=== PATIENT | male | born 1970 ===

== ENCOUNTER 2020-01-17 17:47 | Inpatient (IN) ==
[2020-01-17] MEDS ORDERED: Aspirin 81 MG TAB.CHEW PO ONE (18:18)
[2020-01-17 18:37] LABS: INR 1.2; Prothrombin Time 13.8 Seconds (9.4-12.1)
[2020-01-17 18:40] LABS: Activated Partial Thrombo Time 31.9 Seconds (26.0-36.0)
[2020-01-17 18:46] LABS: Basophils # 0.1 K/mcL (0.0-0.2); Basophils % 0.6 %; Eosinophils # 0.3 K/mcL (0.0-0.6); Eosinophils % 2.6 %; Hematocrit 35.9 % (37.5-50.1); Hemoglobin 11.4 g/dL (12.9-16.9); Immature Granulocytes % 0.6 % (0-4); Lymphocytes # 2.5 K/mcL (0.6-4.6); Lymphocytes % 21.1 %; Mean Corpuscular HGB Conc 31.8 g/dL (31.6-35.5); Mean Corpuscular Hemoglobin 29.7 pg (28.0-33.3); Mean Corpuscular Volume 93.5 fL (83.0-100.0); Mean Platelet Volume 11.5 fL (9.4-12.4); Monocytes % 8.6 %; Neutrophils # 7.7 K/mcL (1.6-8.9); Platelet Count 295 K/mcL (140-400); Red Blood Count 3.84 M/mcL (4.19-5.50); Red Cell Distribution Width 14.2 % (11.5-14.5); Segmented Neutrophils % 66.5 %; White Blood Count 11.6 K/mcL (4.3-11.1)
[2020-01-17 19:06] LABS: Albumin 3.5 g/dL (3.5-5.7); Albumin/Globulin Ratio 1.1 (1.1-2.2); Bilirubin,Direct 0.2 mg/dL (0.0-0.2); Bilirubin,Indirect 0.4 mg/dL (0.0-1.0); Bilirubin,Total 0.6 mg/dL (0.3-1.0); Calcium 8.5 mg/dL (8.6-10.3); Globulin 3.2 g/dL (2.4-3.5); Potassium 3.3 mEq/L (3.5-5.1); Total Protein 6.7 g/dL (6.4-8.9); Troponin I 0.27 ng/mL (< 0.04)
[2020-01-17] MEDS ORDERED: Azithromycin 500 MG in 0.9 % Sodium Chloride 250 ML IVPB ONE (19:12)
[2020-01-17] MEDS ORDERED: Isovue-370 500 ML BOTTLE IVP ONE (19:12)
[2020-01-17] MEDS ORDERED: cefTRIAXone 1,000 MG in Water for inj. (sterile) 10 ML IVP ONE (19:12)
[2020-01-17] MEDS ORDERED: *HR* Heparin 5,000 UNIT/ML VIAL IVP ONE (19:13)
[2020-01-17] MEDS ORDERED: *HR* Heparin 5,000 UNIT/ML VIAL IVP PRN (19:13)
[2020-01-17] MEDS ORDERED: Albuterol 2.5 MG/3 ML NEBULIZER IH ONE (19:14)
[2020-01-17] MEDS ORDERED: Ipratropium/Albuterol Neb 3 ML IH ONE (19:14)
[2020-01-17] MEDS ORDERED: methylPREDNISolone 125 MG/2 ML VIAL IVP ONE (19:14)
[2020-01-17] MEDS ORDERED: Furosemide 40 MG/4 ML VIAL IVP ONE (19:34)
[2020-01-17] MEDS: Nitroglycerin 0.4 MG TAB.SUBL SL PRN (19:35)
[2020-01-17] MEDS ORDERED: Naloxone 0.4 MG/ML INJ IVP PRN (19:42)
[2020-01-17] MEDS ORDERED: Potassium Chloride Elixir 20 MEQ/15 ML UDC PO ONE (19:44)
[2020-01-17] MEDS ORDERED: D5% in Water 1,000 ML IVC PRN (20:52)
[2020-01-17] MEDS ORDERED: Dextrose Gel 15 GM/37.5 ML TUBE PO PRN ×2 (20:52)
[2020-01-17] MEDS ORDERED: *HR* Dextrose 50 % in Water (Syg) 50 ML SYRINGE IVP PRN (20:52)
[2020-01-17] MEDS: Heparin 25,000 UNIT/250 ML D5W 25,000 UNIT/250 ML IV.SOLN IVC SCH (21:22)
[2020-01-18 01:13] LABS: Basophils % 0.3 %; Eosinophils % 0.2 %; Hematocrit 35.8 % (37.5-50.1); Hemoglobin 11.6 g/dL (12.9-16.9); Immature Granulocytes % 0.6 % (0-4); Lymphocytes # 0.8 K/mcL (0.6-4.6); Mean Corpuscular HGB Conc 32.4 g/dL (31.6-35.5); Mean Corpuscular Hemoglobin 30.7 pg (28.0-33.3); Mean Corpuscular Volume 94.7 fL (83.0-100.0); Mean Platelet Volume 11.7 fL (9.4-12.4); Monocytes # 0.2 K/mcL (0.0-1.3); Monocytes % 1.6 %; Neutrophils # 10.5 K/mcL (1.6-8.9); Platelet Count 292 K/mcL (140-400); Red Blood Count 3.78 M/mcL (4.19-5.50); Red Cell Distribution Width 14.2 % (11.5-14.5); Segmented Neutrophils % 90.3 %; White Blood Count 11.6 K/mcL (4.3-11.1)
[2020-01-18 01:32] LABS: Calcium 8.5 mg/dL (8.6-10.3)
[2020-01-18] MEDS: *HR* Heparin 5,000 UNIT/ML VIAL IVP PRN ×3 (03:52→18:46)
[2020-01-18] MEDS: Nitroglycerin 0.4 MG TAB.SUBL SL PRN ×3 (04:58→05:09)
[2020-01-18] MEDS ORDERED: Insulin LISPRO 300 UNITS/3 ML VIAL SQ ONE (05:30)
[2020-01-18] MEDS: carvediloL 6.25 MG TABLET PO SCH ×2 (08:54→16:41)
[2020-01-18] MEDS: Aspirin Enteric Coated 81 MG Tablet PO SCH (08:54)
[2020-01-18] MEDS: Gabapentin 400 MG CAPSULE PO SCH ×3 (08:54→20:17)
[2020-01-18] MEDS: Loratadine 10 MG TABLET PO SCH (08:54)
[2020-01-18] MEDS: Azithromycin 500 MG in 0.9 % Sodium Chloride 250 ML IVPB SCH (08:55)
[2020-01-18] MEDS: cefTRIAXone 2,000 MG in Water for inj. (sterile) 20 ML IVP SCH (08:56)
[2020-01-18] MEDS ORDERED: Furosemide 40 MG/4 ML VIAL IVP SCH (09:00)
[2020-01-18] MEDS: Insulin LISPRO 300 UNITS/3 ML VIAL SQ SCH ×3 (09:02→16:45)
[2020-01-18] MEDS: Insulin DETEMIR 100 UNIT/ML X5UNITS SQ SCH ×2 (09:28→20:17)
[2020-01-18] MEDS: Budesonide/Formoterol 160/4.5 1 PUFF INH IH SCH ×2 (10:04→19:45)
[2020-01-18] MEDS ORDERED: Perflutren Lipid Microsphere 1.3 ML in 0.9 % Sodium Chloride 8.7 ML IVP ONE (10:57)
[2020-01-18] MEDS: Nicotine 21 MG PATCH.TD24 TD SCH (13:49)
[2020-01-18] MEDS: Furosemide 40 MG/4 ML VIAL IVP SCH ×2 (13:50→20:17)
[2020-01-18] MEDS ORDERED: hydrALAZINE 25 MG TABLET PO SCH (16:34)
[2020-01-18] MEDS: Heparin 25,000 UNIT/250 ML D5W 25,000 UNIT/250 ML IV.SOLN IVC SCH (16:40)
[2020-01-18] MEDS ORDERED: NON-FORMULARY MEDICATION 1 EACH EACH (Insulin Degludec [Tresiba Flextouch U-200] 90 UNIT) SQ SCH (21:00)
[2020-01-19 01:18] LABS: Basophils % 0.2 %; Eosinophils % 0.1 %; Hematocrit 37.1 % (37.5-50.1); Hemoglobin 11.6 g/dL (12.9-16.9); Immature Granulocytes % 0.7 % (0-4); Lymphocytes % 11.3 %; Mean Corpuscular HGB Conc 31.3 g/dL (31.6-35.5); Mean Corpuscular Hemoglobin 29.3 pg (28.0-33.3); Mean Corpuscular Volume 93.7 fL (83.0-100.0); Mean Platelet Volume 11.8 fL (9.4-12.4); Monocytes # 1.3 K/mcL (0.0-1.3); Neutrophils # 15.3 K/mcL (1.6-8.9); Platelet Count 316 K/mcL (140-400); Red Blood Count 3.96 M/mcL (4.19-5.50); Red Cell Distribution Width 14.4 % (11.5-14.5); Segmented Neutrophils % 80.7 %
[2020-01-19 01:20] LABS: Lymphocytes # 2.2 K/mcL (0.6-4.6)
[2020-01-19 01:43] LABS: Calcium 9.3 mg/dL (8.6-10.3)
[2020-01-19] MEDS ORDERED: Albuterol 2.5 MG/3 ML NEBULIZER IH PRN (08:07)
[2020-01-19] MEDS: Insulin LISPRO 300 UNITS/3 ML VIAL SQ SCH ×3 (08:22→17:13)
[2020-01-19] MEDS: carvediloL 6.25 MG TABLET PO SCH ×2 (08:45→17:13)
[2020-01-19] MEDS: Furosemide 40 MG/4 ML VIAL IVP SCH (08:45)
[2020-01-19] MEDS: Azithromycin 500 MG in 0.9 % Sodium Chloride 250 ML IVPB SCH (08:46)
[2020-01-19] MEDS: Loratadine 10 MG TABLET PO SCH (08:49)
[2020-01-19] MEDS: hydrALAZINE 25 MG TABLET PO SCH ×2 (08:49→17:13)
[2020-01-19] MEDS: Gabapentin 400 MG CAPSULE PO SCH ×3 (08:49→22:01)
[2020-01-19] MEDS: Aspirin Enteric Coated 81 MG Tablet PO SCH (08:49)
[2020-01-19] MEDS: Nicotine 21 MG PATCH.TD24 TD SCH (08:49)
[2020-01-19] MEDS: cefTRIAXone 2,000 MG in Water for inj. (sterile) 20 ML IVP SCH (09:20)
[2020-01-19] MEDS: Insulin DETEMIR 100 UNIT/ML X5UNITS SQ SCH ×2 (09:24→22:02)
[2020-01-19] MEDS: Budesonide/Formoterol 160/4.5 1 PUFF INH IH SCH ×2 (10:32→19:58)
[2020-01-19] MEDS: *HR* Heparin 5,000 UNIT/ML VIAL SQ SCH (17:13)
[2020-01-19] MEDS ORDERED: Furosemide 80 MG in 0.9 % Sodium Chloride 50 ML IV SCH (21:15)
[2020-01-20] MEDS: hydrALAZINE 25 MG TABLET PO SCH ×3 (01:30→16:45)
[2020-01-20 05:13] LABS: Basophils # 0.1 K/mcL (0.0-0.2); Basophils % 0.6 %; Eosinophils # 0.2 K/mcL (0.0-0.6); Eosinophils % 1.9 %; Hematocrit 38.5 % (37.5-50.1); Hemoglobin 11.8 g/dL (12.9-16.9); Immature Granulocytes % 0.6 % (0-4); Lymphocytes % 24.1 %; Mean Corpuscular HGB Conc 30.6 g/dL (31.6-35.5); Mean Corpuscular Hemoglobin 29.2 pg (28.0-33.3); Mean Corpuscular Volume 95.3 fL (83.0-100.0); Mean Platelet Volume 11.7 fL (9.4-12.4); Monocytes # 1.1 K/mcL (0.0-1.3); Monocytes % 9.1 %; Neutrophils # 7.9 K/mcL (1.6-8.9); Platelet Count 322 K/mcL (140-400); Red Blood Count 4.04 M/mcL (4.19-5.50); Red Cell Distribution Width 14.7 % (11.5-14.5); Segmented Neutrophils % 63.7 %; White Blood Count 12.3 K/mcL (4.3-11.1)
[2020-01-20 05:33] LABS: Calcium 9.1 mg/dL (8.6-10.3); Potassium 3.6 mEq/L (3.5-5.1)
[2020-01-20] MEDS: *HR* Heparin 5,000 UNIT/ML VIAL SQ SCH ×2 (05:47→16:46)
[2020-01-20] MEDS ORDERED: Furosemide 40 MG/4 ML VIAL IVP SCH (07:30)
[2020-01-20] MEDS: Insulin LISPRO 300 UNITS/3 ML VIAL SQ SCH ×3 (07:41→16:47)
[2020-01-20] MEDS: Loratadine 10 MG TABLET PO SCH (08:02)
[2020-01-20] MEDS: carvediloL 6.25 MG TABLET PO SCH ×2 (08:02→16:45)
[2020-01-20] MEDS: Aspirin Enteric Coated 81 MG Tablet PO SCH (08:02)
[2020-01-20] MEDS: Gabapentin 400 MG CAPSULE PO SCH ×3 (08:03→19:52)
[2020-01-20] MEDS: Cefdinir 300 MG CAPSULE PO SCH ×2 (08:04→19:52)
[2020-01-20] MEDS: Azithromycin 250 MG TABLET PO SCH (08:04)
[2020-01-20] MEDS: Nicotine 21 MG PATCH.TD24 TD SCH (08:04)
[2020-01-20] MEDS: Insulin DETEMIR 100 UNIT/ML X5UNITS SQ SCH (08:05)
[2020-01-20] MEDS: Furosemide 60 MG in 0.9 % Sodium Chloride 50 ML IV SCH ×2 (09:19→19:53)
[2020-01-20] MEDS: Budesonide/Formoterol 160/4.5 1 PUFF INH IH SCH ×2 (10:12→20:51)
[2020-01-20] MEDS ORDERED: Insulin DETEMIR 100 UNIT/ML X5UNITS SQ SCH (21:00)
[2020-01-21] MEDS: hydrALAZINE 25 MG TABLET PO SCH ×3 (01:31→17:26)
[2020-01-21 04:40] LABS: Hematocrit 39.8 % (37.5-50.1); Hemoglobin 12.5 g/dL (12.9-16.9); Mean Corpuscular HGB Conc 31.4 g/dL (31.6-35.5); Mean Corpuscular Volume 95.7 fL (83.0-100.0); Mean Platelet Volume 11.5 fL (9.4-12.4); Platelet Count 333 K/mcL (140-400); Red Blood Count 4.16 M/mcL (4.19-5.50); Red Cell Distribution Width 14.7 % (11.5-14.5)
[2020-01-21 05:07] LABS: Calcium 9.2 mg/dL (8.6-10.3); Magnesium 2.5 mg/dL (1.6-2.6); Potassium 3.6 mEq/L (3.5-5.1)
[2020-01-21] MEDS: *HR* Heparin 5,000 UNIT/ML VIAL SQ SCH ×2 (05:29→17:25)
[2020-01-21] MEDS: Budesonide/Formoterol 160/4.5 1 PUFF INH IH SCH ×2 (07:56→20:05)
[2020-01-21] MEDS: Nicotine 21 MG PATCH.TD24 TD SCH (09:06)
[2020-01-21] MEDS: Cefdinir 300 MG CAPSULE PO SCH ×2 (09:07→19:46)
[2020-01-21] MEDS: Azithromycin 250 MG TABLET PO SCH (09:07)
[2020-01-21] MEDS: Gabapentin 400 MG CAPSULE PO SCH ×3 (09:08→19:46)
[2020-01-21] MEDS: carvediloL 6.25 MG TABLET PO SCH ×2 (09:08→17:25)
[2020-01-21] MEDS: Aspirin Enteric Coated 81 MG Tablet PO SCH (09:08)
[2020-01-21] MEDS: Loratadine 10 MG TABLET PO SCH (09:08)
[2020-01-21] MEDS: Furosemide 60 MG in 0.9 % Sodium Chloride 50 ML IV SCH ×2 (09:10→19:46)
[2020-01-21] MEDS: Insulin DETEMIR 100 UNIT/ML X5UNITS SQ SCH ×2 (09:21→19:46)
[2020-01-21] MEDS: Insulin LISPRO 300 UNITS/3 ML VIAL SQ SCH ×3 (09:30→17:26)
[2020-01-22] MEDS: hydrALAZINE 25 MG TABLET PO SCH ×3 (01:09→18:37)
[2020-01-22] MEDS: *HR* Heparin 5,000 UNIT/ML VIAL SQ SCH ×2 (05:32→17:36)
[2020-01-22 06:14] LABS: Basophils # 0.1 K/mcL (0.0-0.2); Basophils % 0.5 %; Eosinophils # 0.5 K/mcL (0.0-0.6); Eosinophils % 5.4 %; Hematocrit 37.7 % (37.5-50.1); Hemoglobin 11.7 g/dL (12.9-16.9); Immature Granulocytes % 0.5 % (0-4); Lymphocytes # 2.3 K/mcL (0.6-4.6); Lymphocytes % 24.5 %; Mean Corpuscular Hemoglobin 29.3 pg (28.0-33.3); Mean Corpuscular Volume 94.5 fL (83.0-100.0); Mean Platelet Volume 11.4 fL (9.4-12.4); Monocytes # 0.9 K/mcL (0.0-1.3); Monocytes % 9.9 %; Neutrophils # 5.5 K/mcL (1.6-8.9); Platelet Count 267 K/mcL (140-400); Red Blood Count 3.99 M/mcL (4.19-5.50); Red Cell Distribution Width 14.6 % (11.5-14.5); Segmented Neutrophils % 59.2 %; White Blood Count 9.3 K/mcL (4.3-11.1)
[2020-01-22 06:39] LABS: Potassium 4.6 mEq/L (3.5-5.1)
[2020-01-22] MEDS: Budesonide/Formoterol 160/4.5 1 PUFF INH IH SCH ×2 (07:44→20:15)
[2020-01-22] MEDS: Insulin LISPRO 300 UNITS/3 ML VIAL SQ SCH ×3 (08:51→17:29)
[2020-01-22] MEDS: Loratadine 10 MG TABLET PO SCH (09:10)
[2020-01-22] MEDS: carvediloL 6.25 MG TABLET PO SCH ×2 (09:10→16:04)
[2020-01-22] MEDS: Aspirin Enteric Coated 81 MG Tablet PO SCH (09:10)
[2020-01-22] MEDS: Nicotine 21 MG PATCH.TD24 TD SCH (09:11)
[2020-01-22] MEDS: Gabapentin 400 MG CAPSULE PO SCH ×3 (09:11→21:00)
[2020-01-22] MEDS: Insulin DETEMIR 100 UNIT/ML X5UNITS SQ SCH (09:12)
[2020-01-22] MEDS: Furosemide 60 MG in 0.9 % Sodium Chloride 50 ML IV SCH (09:17)
[2020-01-22] MEDS ORDERED: Isosorbide MONOnitrate (24 HR) 30 MG TAB.ER.24H PO SCH (11:30)
[2020-01-22] MEDS ORDERED: 0.9 % Sodium Chloride 2,000 ML ONE (11:46)
[2020-01-22] MEDS ORDERED: Nitroglycerin 1,000 MCG/10 ML VIAL IV ONE (11:47)
[2020-01-22] MEDS ORDERED: *HR* Heparin 10,000 UNIT/10 ML VIAL ONE (11:47)
[2020-01-22] MEDS ORDERED: ISOVUE-370 200 ML INFUS..BTL ONE (11:47)
[2020-01-22] MEDS ORDERED: Heparin 1,000 UNITS/500 mL 500 ML ONE (11:47)
[2020-01-22] MEDS ORDERED: *HR* Midazolam HCl 2 MG/2 ML VIAL ONE (11:56)
[2020-01-22] MEDS ORDERED: *HR* FentaNYL (PF) 100 MCG/2 ML VIAL ONE (11:56)
[2020-01-22] MEDS ORDERED: Insulin DETEMIR 100 UNIT/ML X5UNITS SQ SCH (21:00)
[2020-01-23] MEDS: hydrALAZINE 25 MG TABLET PO SCH (00:04)
[2020-01-23] MEDS: *HR* Heparin 5,000 UNIT/ML VIAL SQ SCH ×2 (05:36→18:23)
[2020-01-23] MEDS: Insulin LISPRO 300 UNITS/3 ML VIAL SQ SCH ×3 (08:28→18:23)
[2020-01-23] MEDS: Aspirin Enteric Coated 81 MG Tablet PO SCH (08:29)
[2020-01-23] MEDS: carvediloL 25 MG TABLET PO SCH ×2 (08:29→16:18)
[2020-01-23] MEDS: Gabapentin 400 MG CAPSULE PO SCH ×3 (08:29→21:56)
[2020-01-23] MEDS: Nicotine 21 MG PATCH.TD24 TD SCH (08:30)
[2020-01-23] MEDS: Loratadine 10 MG TABLET PO SCH (08:30)
[2020-01-23] MEDS: Insulin DETEMIR 100 UNIT/ML X5UNITS SQ SCH ×2 (08:40→21:57)
[2020-01-23 09:47] LABS: Magnesium 2.5 mg/dL (1.6-2.6); Potassium 5.2 mEq/L (3.5-5.1)
[2020-01-23] MEDS: Doxycycline 100 MG CAPSULE PO SCH ×2 (10:16→21:56)
[2020-01-23] MEDS: Torsemide 20 MG TABLET PO SCH (10:16)
[2020-01-23] MEDS: Budesonide/Formoterol 160/4.5 1 PUFF INH IH SCH ×2 (10:59→22:28)
[2020-01-23] MEDS ORDERED: Torsemide 20 MG TABLET PO SCH (18:00)
[2020-01-24 01:52] LABS: Calcium 9.2 mg/dL (8.6-10.3); Magnesium 2.5 mg/dL (1.6-2.6); Potassium 4.9 mEq/L (3.5-5.1)
[2020-01-24] MEDS: *HR* Heparin 5,000 UNIT/ML VIAL SQ SCH ×2 (05:03→18:25)
[2020-01-24] MEDS: Budesonide/Formoterol 160/4.5 1 PUFF INH IH SCH ×2 (07:50→20:06)
[2020-01-24] MEDS: Nicotine 21 MG PATCH.TD24 TD SCH (08:09)
[2020-01-24] MEDS: Aspirin Enteric Coated 81 MG Tablet PO SCH (08:11)
[2020-01-24] MEDS: Doxycycline 100 MG CAPSULE PO SCH ×2 (08:11→21:11)
[2020-01-24] MEDS: Insulin LISPRO 300 UNITS/3 ML VIAL SQ SCH ×6 (08:11→17:06)
[2020-01-24] MEDS: Torsemide 20 MG TABLET PO SCH (08:11)
[2020-01-24] MEDS: Loratadine 10 MG TABLET PO SCH (08:12)
[2020-01-24] MEDS: Gabapentin 400 MG CAPSULE PO SCH ×3 (08:12→21:11)
[2020-01-24] MEDS: carvediloL 25 MG TABLET PO SCH ×2 (09:00→16:39)
[2020-01-24] MEDS: Insulin DETEMIR 100 UNIT/ML X5UNITS SQ SCH ×2 (11:25→21:11)
[2020-01-25 02:18] LABS: Basophils # 0.1 K/mcL (0.0-0.2); Basophils % 0.7 %; Eosinophils # 0.5 K/mcL (0.0-0.6); Eosinophils % 3.9 %; Hematocrit 35.4 % (37.5-50.1); Hemoglobin 11.4 g/dL (12.9-16.9); Immature Granulocytes % 0.8 % (0-4); Lymphocytes # 2.7 K/mcL (0.6-4.6); Lymphocytes % 23.1 %; Mean Corpuscular HGB Conc 32.2 g/dL (31.6-35.5); Mean Corpuscular Hemoglobin 30.4 pg (28.0-33.3); Mean Corpuscular Volume 94.4 fL (83.0-100.0); Mean Platelet Volume 11.5 fL (9.4-12.4); Monocytes # 1.1 K/mcL (0.0-1.3); Monocytes % 9.9 %; Neutrophils # 7.1 K/mcL (1.6-8.9); Platelet Count 243 K/mcL (140-400); Red Blood Count 3.75 M/mcL (4.19-5.50); Red Cell Distribution Width 14.4 % (11.5-14.5); Segmented Neutrophils % 61.6 %; White Blood Count 11.5 K/mcL (4.3-11.1)
[2020-01-25 02:21] LABS: Estimated Average Glucose 200 mg/dl
[2020-01-25 02:36] LABS: Calcium 8.9 mg/dL (8.6-10.3); Magnesium 2.5 mg/dL (1.6-2.6); Phosphorous 5.7 mg/dL (2.7-4.5); Potassium 4.8 mEq/L (3.5-5.1)
[2020-01-25] MEDS: *HR* Heparin 5,000 UNIT/ML VIAL SQ SCH (05:26)
[2020-01-25] MEDS: Budesonide/Formoterol 160/4.5 1 PUFF INH IH SCH (07:28)
[2020-01-25] MEDS ORDERED: 0.9 % Sodium Chloride 500 ML IVC SCH (07:30)
[2020-01-25] MEDS: Gabapentin 400 MG CAPSULE PO SCH ×2 (07:55→16:14)
[2020-01-25] MEDS: carvediloL 25 MG TABLET PO SCH ×2 (07:55→16:14)
[2020-01-25] MEDS: Loratadine 10 MG TABLET PO SCH (07:55)
[2020-01-25] MEDS: Aspirin Enteric Coated 81 MG Tablet PO SCH (07:56)
[2020-01-25] MEDS: Doxycycline 100 MG CAPSULE PO SCH (07:56)
[2020-01-25] MEDS: Torsemide 20 MG TABLET PO SCH (07:56)
[2020-01-25] MEDS: Nicotine 21 MG PATCH.TD24 TD SCH (07:56)
[2020-01-25] MEDS: Insulin LISPRO 300 UNITS/3 ML VIAL SQ SCH ×6 (08:06→16:19)
[2020-01-25] MEDS: Insulin DETEMIR 100 UNIT/ML X5UNITS SQ SCH (08:09)
[2020-01-25 14:55] VITALS: BP 118/72
[2020-01-25 17:22] LABS: Calcium 9.3 mg/dL (8.6-10.3)
== END 2020-01-25 18:32 | disposition home or self-care (01) | DRG 192 ==
LOC: EMEROOARM 17:47 → 2NENU 17:47 → SUATTDRO 01-18 21:09
PROVIDERS: ADMIT Student in an Organized Health Care Education/Training Program; ATTEND Internal Medicine

== ENCOUNTER 2020-03-27 16:43 | Inpatient (IN) ==
[2020-03-27 17:33] LABS: Basophils # 0.1 K/mcL (0.0-0.2); Basophils % 0.6 %; Eosinophils # 0.3 K/mcL (0.0-0.6); Eosinophils % 3.3 %; Hematocrit 38.7 % (37.5-50.1); Hemoglobin 11.7 g/dL (12.9-16.9); Immature Granulocytes % 0.3 % (0-4); Lymphocytes # 2.3 K/mcL (0.6-4.6); Lymphocytes % 21.7 %; Mean Corpuscular HGB Conc 30.2 g/dL (31.6-35.5); Mean Corpuscular Hemoglobin 28.5 pg (28.0-33.3); Mean Corpuscular Volume 94.4 fL (83.0-100.0); Mean Platelet Volume 10.3 fL (9.4-12.4); Monocytes # 1.1 K/mcL (0.0-1.3); Neutrophils # 6.7 K/mcL (1.6-8.9); Platelet Count 318 K/mcL (140-400); Red Cell Distribution Width 16.2 % (11.5-14.5); Segmented Neutrophils % 64.1 %; White Blood Count 10.5 K/mcL (4.3-11.1)
[2020-03-27 17:35] LABS: INR 1.3; Prothrombin Time 14.8 Seconds (9.4-12.1)
[2020-03-27 18:00] LABS: Albumin 4.1 g/dL (3.5-5.7); Albumin/Globulin Ratio 1.2 (1.1-2.2); Bilirubin,Direct 0.3 mg/dL (0.0-0.2); Bilirubin,Indirect 0.7 mg/dL (0.0-1.0); Calcium 9.3 mg/dL (8.6-10.3); Globulin 3.4 g/dL (2.4-3.5); Potassium 3.4 mEq/L (3.5-5.1); Total Protein 7.5 g/dL (6.4-8.9); Troponin I 0.1 ng/mL (< 0.04)
[2020-03-27] MEDS ORDERED: Furosemide 40 MG/4 ML VIAL IVP ONE (18:42)
[2020-03-27] MEDS ORDERED: *HR* Dextrose 50 % in Water (Syg) 50 ML SYRINGE IVP PRN (22:10)
[2020-03-27] MEDS ORDERED: D5% in Water 1,000 ML IVC PRN (22:10)
[2020-03-27] MEDS ORDERED: Dextrose Gel 15 GM/37.5 ML TUBE PO PRN ×2 (22:10)
[2020-03-27] MEDS: Insulin LISPRO 300 UNITS/3 ML VIAL SQ SCH (22:20)
[2020-03-27] MEDS ORDERED: Albuterol 2.5 MG/3 ML NEBULIZER IH PRN (22:32)
[2020-03-28] MEDS: *HR* Heparin 5,000 UNIT/ML VIAL SQ SCH ×3 (05:23→20:04)
[2020-03-28 06:10] LABS: Basophils # 0.1 K/mcL (0.0-0.2); Basophils % 0.8 %; Eosinophils # 0.4 K/mcL (0.0-0.6); Eosinophils % 3.4 %; Hemoglobin 12.4 g/dL (12.9-16.9); Immature Granulocytes % 0.2 % (0-4); Lymphocytes # 3.2 K/mcL (0.6-4.6); Lymphocytes % 27.3 %; Mean Corpuscular HGB Conc 30.2 g/dL (31.6-35.5); Mean Corpuscular Hemoglobin 28.6 pg (28.0-33.3); Mean Corpuscular Volume 94.7 fL (83.0-100.0); Mean Platelet Volume 10.7 fL (9.4-12.4); Monocytes # 1.1 K/mcL (0.0-1.3); Monocytes % 9.5 %; Neutrophils # 6.9 K/mcL (1.6-8.9); Platelet Count 364 K/mcL (140-400); Red Blood Count 4.33 M/mcL (4.19-5.50); Red Cell Distribution Width 16.3 % (11.5-14.5); Segmented Neutrophils % 58.8 %; White Blood Count 11.7 K/mcL (4.3-11.1)
[2020-03-28 06:30] LABS: Potassium 3.7 mEq/L (3.5-5.1)
[2020-03-28] MEDS ORDERED: Furosemide 40 MG/4 ML VIAL IVP SCH (09:00)
[2020-03-28] MEDS: Insulin LISPRO 300 UNITS/3 ML VIAL SQ SCH ×3 (09:10→18:13)
[2020-03-28] MEDS: Loratadine 10 MG TABLET PO SCH (09:11)
[2020-03-28] MEDS: carvediloL 6.25 MG TABLET PO SCH ×2 (09:11→18:07)
[2020-03-28] MEDS: Gabapentin 400 MG CAPSULE PO SCH ×3 (09:12→20:04)
[2020-03-28] MEDS: Aspirin Enteric Coated 81 MG Tablet PO SCH (09:13)
[2020-03-28] MEDS: Budesonide/Formoterol 80/4.5 1 PUFF INH IH SCH ×2 (10:43→20:49)
[2020-03-28] MEDS ORDERED: metOLazone 5 MG TABLET PO ONE (12:19)
[2020-03-28] MEDS: Furosemide 40 MG/4 ML VIAL IVP SCH ×2 (15:14→20:04)
[2020-03-28] MEDS: Insulin DETEMIR 100 UNIT/ML X5UNITS SQ SCH (20:05)
[2020-03-29 05:21] LABS: Basophils # 0.1 K/mcL (0.0-0.2); Eosinophils # 0.4 K/mcL (0.0-0.6); Eosinophils % 5.1 %; Hematocrit 37.1 % (37.5-50.1); Immature Granulocytes % 0.2 % (0-4); Lymphocytes # 2.5 K/mcL (0.6-4.6); Lymphocytes % 29.2 %; Mean Corpuscular HGB Conc 29.6 g/dL (31.6-35.5); Mean Corpuscular Hemoglobin 28.5 pg (28.0-33.3); Mean Corpuscular Volume 96.1 fL (83.0-100.0); Mean Platelet Volume 10.6 fL (9.4-12.4); Monocytes # 0.9 K/mcL (0.0-1.3); Monocytes % 9.9 %; Neutrophils # 4.7 K/mcL (1.6-8.9); Platelet Count 321 K/mcL (140-400); Red Blood Count 3.86 M/mcL (4.19-5.50); Red Cell Distribution Width 16.3 % (11.5-14.5); Segmented Neutrophils % 54.6 %; White Blood Count 8.7 K/mcL (4.3-11.1)
[2020-03-29] MEDS: *HR* Heparin 5,000 UNIT/ML VIAL SQ SCH ×3 (05:34→21:07)
[2020-03-29 05:39] LABS: Calcium 9.2 mg/dL (8.6-10.3); Magnesium 2.3 mg/dL (1.6-2.6); Phosphorous 5.7 mg/dL (2.7-4.5); Potassium 4.2 mEq/L (3.5-5.1)
[2020-03-29] MEDS: Budesonide/Formoterol 80/4.5 1 PUFF INH IH SCH ×2 (07:56→19:54)
[2020-03-29] MEDS: Insulin LISPRO 300 UNITS/3 ML VIAL SQ SCH ×3 (08:18→17:10)
[2020-03-29] MEDS: Aspirin Enteric Coated 81 MG Tablet PO SCH (10:05)
[2020-03-29] MEDS: Loratadine 10 MG TABLET PO SCH (10:05)
[2020-03-29] MEDS: carvediloL 6.25 MG TABLET PO SCH ×2 (10:05→17:10)
[2020-03-29] MEDS: Furosemide 40 MG/4 ML VIAL IVP SCH ×3 (10:06→20:52)
[2020-03-29] MEDS: Gabapentin 400 MG CAPSULE PO SCH ×3 (10:06→20:53)
[2020-03-29] MEDS: Nicotine 21 MG PATCH.TD24 TD SCH (10:57)
[2020-03-29 13:42] LABS: Bilirubin,Urine Negative (Negative); Blood,Urine Negative (Negative); Clarity,Urine Clear (Clear); Color,Urine Yellow (Yellow); Glucose,Urine (UA) Normal (Normal); Ketones,Urine Negative (Negative); Protein,Urine Negative (Neg-Trace)
[2020-03-29 13:43] LABS: Leukocyte Esterase,Urine Negative (Negative); Nitrite,Urine Negative (Negative); Urobilinogen,Urine Normal (Normal)
[2020-03-29] MEDS: Insulin DETEMIR 100 UNIT/ML X5UNITS SQ SCH (20:53)
[2020-03-30] MEDS: *HR* Heparin 5,000 UNIT/ML VIAL SQ SCH ×3 (06:26→20:50)
[2020-03-30 07:53] LABS: Calcium 9.1 mg/dL (8.6-10.3); Potassium 4.3 mEq/L (3.5-5.1)
[2020-03-30] MEDS: Budesonide/Formoterol 80/4.5 1 PUFF INH IH SCH ×2 (08:01→20:27)
[2020-03-30] MEDS: Gabapentin 400 MG CAPSULE PO SCH ×3 (10:07→20:50)
[2020-03-30] MEDS: Loratadine 10 MG TABLET PO SCH (10:07)
[2020-03-30] MEDS: Nicotine 21 MG PATCH.TD24 TD SCH (10:07)
[2020-03-30] MEDS: carvediloL 6.25 MG TABLET PO SCH ×2 (10:07→17:48)
[2020-03-30] MEDS: Aspirin Enteric Coated 81 MG Tablet PO SCH (10:07)
[2020-03-30] MEDS: Furosemide 40 MG/4 ML VIAL IVP SCH (10:08)
[2020-03-30] MEDS: Insulin LISPRO 300 UNITS/3 ML VIAL SQ SCH ×3 (10:08→17:49)
[2020-03-30] MEDS: Torsemide 20 MG TABLET PO SCH (17:48)
[2020-03-30] MEDS: Insulin DETEMIR 100 UNIT/ML X5UNITS SQ SCH (20:51)
[2020-03-31] MEDS: *HR* Heparin 5,000 UNIT/ML VIAL SQ SCH ×3 (05:10→20:46)
[2020-03-31 06:17] LABS: Calcium 9.7 mg/dL (8.6-10.3); Potassium 4.6 mEq/L (3.5-5.1)
[2020-03-31] MEDS: Torsemide 20 MG TABLET PO SCH ×2 (09:30→16:59)
[2020-03-31] MEDS: Gabapentin 400 MG CAPSULE PO SCH ×3 (09:30→20:47)
[2020-03-31] MEDS: Loratadine 10 MG TABLET PO SCH (09:30)
[2020-03-31] MEDS: Aspirin Enteric Coated 81 MG Tablet PO SCH (09:30)
[2020-03-31] MEDS: Nicotine 21 MG PATCH.TD24 TD SCH (09:33)
[2020-03-31] MEDS: Insulin LISPRO 300 UNITS/3 ML VIAL SQ SCH ×3 (09:34→16:59)
[2020-03-31] MEDS: carvediloL 6.25 MG TABLET PO SCH ×2 (09:39→16:59)
[2020-03-31] MEDS: Budesonide/Formoterol 80/4.5 1 PUFF INH IH SCH ×2 (10:05→21:50)
[2020-03-31] MEDS: Insulin DETEMIR 100 UNIT/ML X5UNITS SQ SCH (20:57)
[2020-04-01] MEDS: *HR* Heparin 5,000 UNIT/ML VIAL SQ SCH (06:11)
[2020-04-01 07:25] LABS: Calcium 9.4 mg/dL (8.6-10.3); Potassium 4.6 mEq/L (3.5-5.1)
[2020-04-01] MEDS: Budesonide/Formoterol 80/4.5 1 PUFF INH IH SCH (08:02)
[2020-04-01] MEDS: Insulin LISPRO 300 UNITS/3 ML VIAL SQ SCH ×2 (08:08→11:59)
[2020-04-01] MEDS: Nicotine 21 MG PATCH.TD24 TD SCH (08:47)
[2020-04-01] MEDS: carvediloL 6.25 MG TABLET PO SCH (08:47)
[2020-04-01] MEDS: Aspirin Enteric Coated 81 MG Tablet PO SCH (08:47)
[2020-04-01] MEDS: Gabapentin 400 MG CAPSULE PO SCH (08:47)
[2020-04-01] MEDS: Loratadine 10 MG TABLET PO SCH (08:47)
[2020-04-01] MEDS: Torsemide 20 MG TABLET PO SCH (08:48)
[2020-04-01 11:17] VITALS: BP 125/79
== END 2020-04-01 13:03 | disposition home or self-care (01) | DRG 194 ==
LOC: 3BNU 16:43 → EMEROOARM 16:43 → SUATTDRO 19:45 → 3BNU 20:40 → SUATTDRO 03-29 13:27
PROVIDERS: ADMIT Internal Medicine; ATTEND Internal Medicine

== ENCOUNTER 2020-08-23 12:38 | Inpatient (IN) ==
[2020-08-23 13:52] LABS: Basophils # 0.1 K/mcL (0.0-0.2); Basophils % 0.5 %; Eosinophils # 0.1 K/mcL (0.0-0.6); Eosinophils % 0.5 %; Hematocrit 34.2 % (37.5-50.1); Hemoglobin 10.5 g/dL (12.9-16.9); Immature Granulocytes % 0.4 % (0-4); Lymphocytes # 1.3 K/mcL (0.6-4.6); Lymphocytes % 14.4 %; Mean Corpuscular HGB Conc 30.7 g/dL (31.6-35.5); Mean Corpuscular Volume 97.7 fL (83.0-100.0); Mean Platelet Volume 10.5 fL (9.4-12.4); Monocytes # 0.7 K/mcL (0.0-1.3); Monocytes % 7.7 %; Neutrophils # 7.1 K/mcL (1.6-8.9); Platelet Count 257 K/mcL (140-400); Red Cell Distribution Width 18.1 % (11.5-14.5); Segmented Neutrophils % 76.5 %; White Blood Count 9.3 K/mcL (4.3-11.1)
[2020-08-23] MEDS ORDERED: Furosemide 40 MG/4 ML VIAL IVP ONE (14:14)
[2020-08-23 14:17] LABS: Troponin I 0.17 ng/mL (< 0.04)
[2020-08-23 14:20] LABS: Calcium 9.2 mg/dL (8.6-10.3); Potassium 4.3 mEq/L (3.5-5.1)
[2020-08-23] MEDS ORDERED: Naloxone 0.4 MG/ML INJ IVP PRN (15:12)
[2020-08-23] MEDS ORDERED: *HR* Dextrose 50 % in Water (Vial) 50 ML VIAL IVP PRN (15:18)
[2020-08-23] MEDS ORDERED: Dextrose Gel 15 GM/37.5 ML TUBE PO PRN ×2 (15:18)
[2020-08-23] MEDS ORDERED: D5% in Water 1,000 ML IVC PRN (15:18)
[2020-08-23] MEDS ORDERED: Nitroglycerin 0.4 MG TAB.SUBL SL PRN (16:00)
[2020-08-23 16:24] LABS: Adenovirus Not Detected (Not Detect); Bordetella Pertussis Not Detected (Not Detect); Chlamydophila pneumoniae Not Detected (Not Detect); Coronavirus 229E Not Detected (Not Detect); Coronavirus HKU1 Not Detected (Not Detect); Coronavirus NL63 Not Detected (Not Detect); Coronavirus OC43 Not Detected (Not Detect); Human Metapneumovirus Not Detected (Not Detect); Human Rhinovirus/Enterovirus Not Detected (Not Detect); Influenza A Subtype 2009 H1 Not Detected (Not Detect); Influenza B Not Detected (Not Detect); Parainfluenza Virus 1 Not Detected (Not Detect); Parainfluenza Virus 2 Not Detected (Not Detect); Parainfluenza Virus 3 Not Detected (Not Detect); Parainfluenza Virus 4 Not Detected (Not Detect); Respiratory Syncytial Virus Not Detected (Not Detect); SARS-CoV-2 Not Detected (Not Detect)
[2020-08-23 16:25] LABS: Mycoplasma pneumoniae Not Detected (Not Detect)
[2020-08-23] MEDS ORDERED: Perflutren Lipid Microsphere 1.3 ML in 0.9 % Sodium Chloride 8.7 ML IVP PRN (16:25)
[2020-08-23] MEDS ORDERED: Ipratropium/Albuterol Neb 3 ML IH PRN (17:37)
[2020-08-23] MEDS: Insulin LISPRO 300 UNITS/3 ML VIAL SQ SCH (17:59)
[2020-08-23] MEDS: carvediloL 6.25 MG TABLET PO SCH (18:00)
[2020-08-23] MEDS: Budesonide/Formoterol 160/4.5 1 PUFF INH IH SCH (19:51)
[2020-08-23] MEDS: Gabapentin 400 MG CAPSULE PO SCH (20:23)
[2020-08-23] MEDS: *HR* Heparin 5,000 UNIT/ML VIAL SQ SCH (20:24)
[2020-08-23] MEDS: Insulin DETEMIR 100 UNIT/ML X5UNITS SQ SCH (20:24)
[2020-08-23] MEDS ORDERED: NON-FORMULARY MEDICATION 1 EACH EACH (Mometasone/Formoterol [Dulera 200 Mcg-5 Mcg Inhaler] IH SCH (21:00)
[2020-08-24] MEDS: MethylPREDNISolone 40 MG/ML VIAL IVP SCH ×3 (00:24→15:12)
[2020-08-24 05:01] LABS: Basophils % 0.4 %; Eosinophils % 0.2 %; Hemoglobin 11.1 g/dL (12.9-16.9); Immature Granulocytes % 0.5 % (0-4); Lymphocytes % 9.1 %; Mean Corpuscular HGB Conc 29.2 g/dL (31.6-35.5); Mean Corpuscular Hemoglobin 29.2 pg (28.0-33.3); Mean Platelet Volume 10.6 fL (9.4-12.4); Monocytes # 0.4 K/mcL (0.0-1.3); Monocytes % 3.2 %; Neutrophils # 9.4 K/mcL (1.6-8.9); Platelet Count 311 K/mcL (140-400); Red Cell Distribution Width 18.3 % (11.5-14.5); Segmented Neutrophils % 86.6 %; White Blood Count 10.8 K/mcL (4.3-11.1)
[2020-08-24] MEDS: *HR* Heparin 5,000 UNIT/ML VIAL SQ SCH (05:11)
[2020-08-24 05:22] LABS: Calcium 9.8 mg/dL (8.6-10.3); Potassium 4.7 mEq/L (3.5-5.1)
[2020-08-24] MEDS: Insulin LISPRO 300 UNITS/3 ML VIAL SQ SCH ×3 (07:20→16:14)
[2020-08-24] MEDS: Nicotine 21 MG PATCH.TD24 TD SCH (07:36)
[2020-08-24] MEDS: Aspirin Enteric Coated 81 MG Tablet PO SCH (07:37)
[2020-08-24] MEDS: Gabapentin 400 MG CAPSULE PO SCH ×3 (07:37→20:44)
[2020-08-24] MEDS: carvediloL 6.25 MG TABLET PO SCH ×2 (07:37→16:15)
[2020-08-24] MEDS: Loratadine 10 MG TABLET PO SCH (07:37)
[2020-08-24] MEDS: Cholecalciferol (D-3) 1,000 UNIT (25MCG) TABLET PO SCH (07:37)
[2020-08-24] MEDS: Budesonide/Formoterol 160/4.5 1 PUFF INH IH SCH ×2 (07:46→20:06)
[2020-08-24] MEDS: Bumetanide 1 MG/4 ML VIAL IVP SCH ×2 (07:57→16:15)
[2020-08-24] MEDS: OLOPATADINE 0.2% OP SCH (07:57)
[2020-08-24] MEDS ORDERED: NON-FORMULARY MEDICATION 1 EACH EACH (Fluticasone/Vilanterol [Breo Ellipta 100-25 Mcg Inh] IH SCH (09:00)
[2020-08-24] MEDS ORDERED: *HR* Heparin 5,000 UNIT/ML VIAL IVP ONE (11:57)
[2020-08-24] MEDS ORDERED: *HR* Heparin 5,000 UNIT/ML VIAL IVP PRN (11:57)
[2020-08-24] MEDS ORDERED: Ergocalciferol (VIT D2) 50,000 UNIT (1.25MG) CAP PO SCH (12:00)
[2020-08-24] MEDS: Heparin 25,000UNIT/250ML 1/2NS 25,000 UNIT/250 ML IV.SOLN IVC SCH (13:26)
[2020-08-24 14:00] LABS: Hematocrit 37.6 % (37.5-50.1); Hemoglobin 11.2 g/dL (12.9-16.9); Mean Corpuscular HGB Conc 29.8 g/dL (31.6-35.5); Mean Corpuscular Hemoglobin 29.2 pg (28.0-33.3); Mean Corpuscular Volume 97.9 fL (83.0-100.0); Mean Platelet Volume 10.7 fL (9.4-12.4); Platelet Count 308 K/mcL (140-400); Red Blood Count 3.84 M/mcL (4.19-5.50); Red Cell Distribution Width 18.3 % (11.5-14.5); White Blood Count 10.7 K/mcL (4.3-11.1)
[2020-08-24 14:07] LABS: Heparin anti-factor XA UFH 0.58 IU/mL (0.30-0.70)
[2020-08-24 14:08] LABS: INR 1.4; Prothrombin Time 15.4 Seconds (9.4-12.1)
[2020-08-24] MEDS: Insulin DETEMIR 100 UNIT/ML X5UNITS SQ SCH (20:44)
[2020-08-24] MEDS: *HR* Heparin 5,000 UNIT/ML VIAL IVP PRN (20:45)
[2020-08-25] MEDS: MethylPREDNISolone 40 MG/ML VIAL IVP SCH ×2 (00:25→07:24)
[2020-08-25 05:00] LABS: Basophils % 0.1 %; Eosinophils % 0.1 %; Hematocrit 39.2 % (37.5-50.1); Hemoglobin 11.9 g/dL (12.9-16.9); Lymphocytes # 0.6 K/mcL (0.6-4.6); Lymphocytes % 4.5 %; Mean Corpuscular HGB Conc 30.4 g/dL (31.6-35.5); Mean Corpuscular Volume 98.7 fL (83.0-100.0); Monocytes # 0.4 K/mcL (0.0-1.3); Platelet Count 318 K/mcL (140-400); Red Blood Count 3.97 M/mcL (4.19-5.50); Red Cell Distribution Width 18.3 % (11.5-14.5); Segmented Neutrophils % 91.3 %; White Blood Count 13.2 K/mcL (4.3-11.1)
[2020-08-25 05:25] LABS: Calcium 9.9 mg/dL (8.6-10.3); Potassium 5.1 mEq/L (3.5-5.1)
[2020-08-25] MEDS: *HR* Heparin 5,000 UNIT/ML VIAL IVP PRN (05:35)
[2020-08-25] MEDS: Insulin LISPRO 300 UNITS/3 ML VIAL SQ SCH ×2 (07:23→11:23)
[2020-08-25] MEDS: Bumetanide 1 MG/4 ML VIAL IVP SCH (07:24)
[2020-08-25] MEDS: Cholecalciferol (D-3) 1,000 UNIT (25MCG) TABLET PO SCH (07:24)
[2020-08-25] MEDS: Loratadine 10 MG TABLET PO SCH (07:25)
[2020-08-25] MEDS: carvediloL 6.25 MG TABLET PO SCH (07:25)
[2020-08-25] MEDS: Gabapentin 400 MG CAPSULE PO SCH (07:25)
[2020-08-25] MEDS: OLOPATADINE 0.2% OP SCH (07:26)
[2020-08-25] MEDS: Nicotine 21 MG PATCH.TD24 TD SCH (07:26)
[2020-08-25] MEDS: Aspirin Enteric Coated 81 MG Tablet PO SCH (07:26)
[2020-08-25] MEDS: Budesonide/Formoterol 160/4.5 1 PUFF INH IH SCH (07:51)
[2020-08-25 10:35] VITALS: BP 137/87
[2020-08-25] MEDS: Heparin 25,000UNIT/250ML 1/2NS 25,000 UNIT/250 ML IV.SOLN IVC SCH (11:24)
== END 2020-08-25 12:38 | disposition short-term general hospital (02) | DRG 194 ==
LOC: EMEROOARM 12:38 → 2ANU 12:38 → SUATTDRO 16:42 → 2ANU 17:14
PROVIDERS: ADMIT Internal Medicine; ATTEND Internal Medicine

== ENCOUNTER 2022-09-19 23:22 | Inpatient (IN) ==
[2022-09-20] MEDS ORDERED: Piperacillin/Tazobactam 3.375 GM in 0.9 % Sodium Chloride Mini Bag 100 ML IVPB ONE (00:32)
[2022-09-20 00:34] LABS: Calcium 9.2 mg/dL (8.6-10.3); Potassium 3.9 mEq/L (3.5-5.1)
[2022-09-20 00:36] LABS: Basophils # 0.1 K/mcL (0.0-0.2); Basophils % 0.6 %; Eosinophils # 0.2 K/mcL (0.0-0.6); Eosinophils % 2.4 %; Hematocrit 26.2 % (37.5-50.1); Hemoglobin 7.6 g/dL (12.9-16.9); Immature Granulocytes % 0.3 % (0-4); Lymphocytes % 19.4 %; Mean Corpuscular Hemoglobin 28.7 pg (28.0-33.3); Mean Corpuscular Volume 98.9 fL (83.0-100.0); Monocytes # 0.9 K/mcL (0.0-1.3); Monocytes % 8.8 %; Nucleated Red Blood Cells 0.2 /100 WBC (0); Platelet Count 373 K/mcL (140-400); Red Blood Count 2.65 M/mcL (4.19-5.50); Red Cell Distribution Width 17.5 % (11.5-14.5); Segmented Neutrophils % 68.5 %; White Blood Count 10.2 K/mcL (4.3-11.1)
[2022-09-20 00:37] LABS: Troponin I 0.12 ng/mL (< 0.04)
[2022-09-20 00:46] LABS: INR 1.5; Prothrombin Time 16.4 Seconds (9.4-12.1)
[2022-09-20 00:58] LABS: Albumin 3.7 g/dL (3.5-5.7); Bilirubin,Direct 0.4 mg/dL (0.0-0.2); Bilirubin,Indirect 0.7 mg/dL (0.0-1.0); Bilirubin,Total 1.1 mg/dL (0.3-1.0); Globulin 3.8 g/dL (2.4-3.5); Total Protein 7.5 g/dL (6.4-8.9)
[2022-09-20] MEDS ORDERED: Vancomycin 2,000 MG/520 ML IV.SOLN IVPB ONE (01:00)
[2022-09-20 01:10] LABS: VBG HCO3 30 mEq/L (21-27); VBG PCO2 56 mmHg (41-51); VBG PH 7.34 pH Units (7.32-7.42); VBG PO2 44 mmHg (25-50)
[2022-09-20] MEDS ORDERED: Aspirin 81 MG TAB.CHEW PO ONE (01:21)
[2022-09-20] MEDS ORDERED: Naloxone 0.4 MG/ML INJ IVP PRN (03:14)
[2022-09-20] MEDS ORDERED: Acetaminophen 325 MG TABLET PO PRN (03:14)
[2022-09-20] MEDS ORDERED: Iopamidol - 370 500 ML MLS IVP ONE (04:17)
[2022-09-20] MEDS ORDERED: 0.9 % Sodium Chloride 1,000 ML IVC ONE (05:44)
[2022-09-20 05:59] LABS: Basophils # 0.1 K/mcL (0.0-0.2); Basophils % 0.6 %; Eosinophils # 0.3 K/mcL (0.0-0.6); Eosinophils % 3.9 %; Hematocrit 23.1 % (37.5-50.1); Hemoglobin 6.8 g/dL (12.9-16.9); Immature Granulocytes % 0.2 % (0-4); Immature Reticulocyte % 34.5 % (11.0-38.0); Lymphocytes # 1.6 K/mcL (0.6-4.6); Lymphocytes % 19.3 %; Mean Corpuscular HGB Conc 29.4 g/dL (31.6-35.5); Mean Corpuscular Hemoglobin 28.9 pg (28.0-33.3); Mean Corpuscular Volume 98.3 fL (83.0-100.0); Mean Platelet Volume 10.9 fL (9.4-12.4); Monocytes # 0.8 K/mcL (0.0-1.3); Monocytes % 9.3 %; Neutrophils # 5.5 K/mcL (1.6-8.9); Nucleated Red Blood Cells 0.2 /100 WBC (0); Platelet Count 339 K/mcL (140-400); Red Blood Count 2.35 M/mcL (4.19-5.50); Red Cell Distribution Width 17.7 % (11.5-14.5); Retculocyte # 0.11 M/mcL (0.05-0.10); Reticulocyte % 4.8 % (1.6-2.8); Segmented Neutrophils % 66.7 %; White Blood Count 8.3 K/mcL (4.3-11.1)
[2022-09-20 06:18] LABS: Calcium 8.9 mg/dL (8.6-10.3); Magnesium 2.1 mg/dL (1.6-2.6); Phosphorous 3.8 mg/dL (2.7-4.5); Potassium 3.6 mEq/L (3.5-5.1)
[2022-09-20 06:43] LABS: Folate 12.7 ng/mL (3.0-16.0)
[2022-09-20] MEDS ORDERED: Saliva Stimulant 44.3ml BOTTLE PO PRN (07:40)
[2022-09-20] MEDS ORDERED: Clindamycin 900 MG/50 ML 900 MG/50 ML IV.SOLN IVPB SCH (08:00)
[2022-09-20] MEDS ORDERED: *HR* Dextrose 50 % in Water (Syg) 50 ML SYRINGE IVP PRN (08:12)
[2022-09-20] MEDS ORDERED: D5% in Water 1,000 ML IVC PRN (08:12)
[2022-09-20] MEDS ORDERED: Dextrose Gel 15 GM/37.5 ML TUBE PO PRN ×2 (08:12)
[2022-09-20] MEDS: Metoprolol XL (24 HR) Succ 25 MG TAB.ER.24H PO SCH (08:37)
[2022-09-20] MEDS: Chlorhexidine Rinse 15 ML MOUTHWASH MM SCH ×2 (08:37→21:06)
[2022-09-20] MEDS: Aspirin 81 MG TAB.CHEW PO SCH (08:37)
[2022-09-20] MEDS: Lactobacillus 1 EACH CAP.SPRINK PO SCH ×2 (08:37→21:07)
[2022-09-20] MEDS ORDERED: Metoprolol XL (24 HR) Succ 25 MG TAB.ER.24H PO SCH (09:00)
[2022-09-20] MEDS: Piperacillin/Tazobactam 3.375 GM in 0.9 % Sodium Chloride Mini Bag 100 ML IVPB SCH ×2 (10:21→11:52)
[2022-09-20] MEDS: Budesonide/Formoterol 160/4.5 1 PUFF INH IH SCH ×2 (10:51→22:54)
[2022-09-20] MEDS: Ipratropium/Albuterol Neb 3 ML IH SCH ×3 (10:51→22:53)
[2022-09-20] MEDS: Furosemide 40 MG/4 ML VIAL IVP SCH ×2 (12:11→21:06)
[2022-09-20] MEDS: Insulin LISPRO 300 UNITS/3 ML VIAL SUBQ SCH ×2 (12:12→18:12)
[2022-09-20] MEDS ORDERED: 0.9 % Sodium Chloride 250 ML ONE (13:37)
[2022-09-20] MEDS ORDERED: Vancomycin 2,000 MG/520 ML IV.SOLN IVPB SCH (14:00)
[2022-09-20] MEDS: *HR* Heparin 5,000 UNIT/ML VIAL SQ SCH ×2 (16:42→21:06)
[2022-09-20 17:14] LABS: Calcium 9.1 mg/dL (8.6-10.3); Potassium 4.2 mEq/L (3.5-5.1)
[2022-09-20 19:20] LABS: Hematocrit 26.1 % (37.5-50.1)
[2022-09-20 19:44] LABS: Adenovirus Not Detected (Not Detect); Bordetella Pertussis Not Detected (Not Detect); Chlamydophila pneumoniae Not Detected (Not Detect); Coronavirus 229E Not Detected (Not Detect); Coronavirus HKU1 Not Detected (Not Detect); Coronavirus NL63 Not Detected (Not Detect); Coronavirus OC43 Not Detected (Not Detect); Human Metapneumovirus Not Detected (Not Detect); Human Rhinovirus/Enterovirus Not Detected (Not Detect); Influenza A Subtype 2009 H1 Not Detected (Not Detect); Influenza B Not Detected (Not Detect); Mycoplasma pneumoniae Not Detected (Not Detect); Parainfluenza Virus 1 Not Detected (Not Detect); Parainfluenza Virus 2 Not Detected (Not Detect); Parainfluenza Virus 3 Not Detected (Not Detect); Parainfluenza Virus 4 Not Detected (Not Detect); Respiratory Syncytial Virus Not Detected (Not Detect); SARS-CoV-2 Not Detected (Not Detect)
[2022-09-21 01:59] LABS: Hematocrit 27.1 % (37.5-50.1); Hemoglobin 7.9 g/dL (12.9-16.9); Mean Corpuscular HGB Conc 29.2 g/dL (31.6-35.5); Mean Corpuscular Hemoglobin 28.2 pg (28.0-33.3); Mean Corpuscular Volume 96.8 fL (83.0-100.0); Mean Platelet Volume 10.8 fL (9.4-12.4); Platelet Count 353 K/mcL (140-400); Red Cell Distribution Width 17.5 % (11.5-14.5); White Blood Count 8.8 K/mcL (4.3-11.1)
[2022-09-21 02:16] LABS: Calcium 8.9 mg/dL (8.6-10.3); Potassium 4.4 mEq/L (3.5-5.1)
[2022-09-21] MEDS: Ipratropium/Albuterol Neb 3 ML IH SCH ×4 (04:05→21:43)
[2022-09-21] MEDS: *HR* Heparin 5,000 UNIT/ML VIAL SQ SCH ×3 (05:15→21:04)
[2022-09-21] MEDS: Piperacillin/Tazobactam 3.375 GM in 0.9 % Sodium Chloride Mini Bag 100 ML IVPB SCH ×4 (07:00→15:38)
[2022-09-21 08:08] VITALS: PULSE 87
[2022-09-21] MEDS: Aspirin 81 MG TAB.CHEW PO SCH (08:31)
[2022-09-21] MEDS: Chlorhexidine Rinse 15 ML MOUTHWASH MM SCH ×2 (08:31→21:04)
[2022-09-21] MEDS: Insulin LISPRO 300 UNITS/3 ML VIAL SUBQ SCH ×3 (08:31→17:25)
[2022-09-21] MEDS: Lactobacillus 1 EACH CAP.SPRINK PO SCH ×2 (08:32→21:04)
[2022-09-21] MEDS: Metoprolol XL (24 HR) Succ 25 MG TAB.ER.24H PO SCH (08:32)
[2022-09-21] MEDS: Furosemide 40 MG/4 ML VIAL IVP SCH (08:58)
[2022-09-21] MEDS ORDERED: Ondansetron ODT 4 MG TAB.RAPDIS SL PRN (09:46)
[2022-09-21] MEDS: Budesonide/Formoterol 160/4.5 1 PUFF INH IH SCH ×2 (10:48→21:43)
[2022-09-21 16:27] VITALS: BP 116/75; TEMP 97.7; O2SAT 91
[2022-09-21] MEDS ORDERED: Furosemide 40 MG/4 ML VIAL IVP SCH (17:00)
[2022-09-21] MEDS ORDERED: Lactobacillus 1 EACH CAP.SPRINK PO ONE (21:01)
[2022-09-21] MEDS ORDERED: *HR* Heparin 5,000 UNIT/ML VIAL IVP ONE (21:01)
[2022-09-21] MEDS ORDERED: Chlorhexidine Rinse 15 ML MOUTHWASH PO ONE (21:01)
== END 2022-09-21 23:59 | disposition other institution (70) | DRG 194 ==
LOC: EMEROOARM 23:22 → 3ANU 23:22 → SUATTDRO 09-20 03:02 → 3ANU 09-20 04:15
PROVIDERS: ADMIT Internal Medicine; ATTEND Internal Medicine